=== PATIENT | female | born 1965 | race Caucasian/White ===

== ENCOUNTER 2018-11-19 22:08 | Emergency (ER) | payer SELFPAY ==
--- NOTE | 2018-11-19 23:44 | ERPHSYRPT ---
- History of Present Illness Time Seen by Provider: 11/19/18 23:41 Source: patient Exam Limitations: no limitations Patient Subjective Stated Complaint: pt is alert and oriented. pt is ambulatory with a steady gait. pt comes in with a small abrasion to her right lower leg that she believes is a "bat bite". area is closed. no drainage. no redness. no swelling. no tenderness. Triage Nursing Assessment: see above Physician History: 53-year-old white female previously healthy arrives with complaint that she is been having a bat bite her over the past 2 weeks. She states that the last time she was bitten was last November 15 she states she she's had a bad in her house she called her landlord he had never been able to see it but she states that she has has seen it and is convinced that the bat has bitten her several times over the past 2 weeks. Past medical history negative Past surgical history negative Timing/Duration: week(s) (2 weeks) Severity: moderate Modifying Factors: Improves With: nothing Associated Symptoms: No nausea, No vomiting, No abdominal pain, No shortness of breath, No heartburn, No diaphoresis, No cough, No chills, No chest pain, No fever, No headaches, No loss of appetite, No malaise, No rash, No syncope, No seizure, No weakness Allergies/Adverse Reactions: No Known Drug Allergies Allergy (Unverified 11/19/18 22:55) Home Medications: No Reportable Medications [No Reported Medications] 11/19/18 [History] Hx Tetanus, Diphtheria Vaccination/Date Given: No Immunizations Up to Date: Yes - Review of Systems Constitutional: No Symptoms Eyes: No Symptoms Ears, Nose, & Throat: No Symptoms Respiratory: No Cough, No Dyspnea Cardiac: No Chest Pain, No Edema, No Syncope Abdominal/Gastrointestinal: No Abdominal Pain, No Nausea, No Vomiting, No Diarrhea Genitourinary Symptoms: No Dysuria Musculoskeletal: No Back Pain, No Neck Pain Skin: Other (several small bites on lower legs), No Rash Neurological: No Dizziness, No Focal Weakness, No Sensory Changes Psychological: No Symptoms Endocrine: No Symptoms All Other Systems: Reviewed and Negative - Past Medical History Pertinent Past Medical History: No - Past Surgical History Past Surgical History: No - Social History Smoking Status: Current every day smoker How long have you smoked: 10 years Drug Use: none - Female History Hx Now: No - Nursing Vital Signs Nursing Vital Signs: Initial Vital Signs Temperature 98.2 F 11/19/18 22:50 Pulse Rate 103 H 11/19/18 22:50 Respiratory Rate 16 11/19/18 22:50 Blood Pressure 151/105 11/19/18 22:50 O2 Sat by Pulse Oximetry 97 11/19/18 22:50 Pain Scale Pain Intensity 0 - Physical Exam General Appearance: no apparent distress, alert Eye Exam: PERRL/EOMI, eyes nml inspection Ears, Nose, Throat Exam: normal ENT inspection, TMs normal, pharynx normal, moist mucous membranes Neck Exam: normal inspection, non-tender, supple, full range of motion Respiratory Exam: normal breath sounds, lungs clear, No respiratory distress Cardiovascular Exam: regular rate/rhythm, normal heart sounds, normal peripheral pulses, capillary refill <2 sec Gastrointestinal/Abdomen Exam: soft, normal bowel sounds, No tenderness, No mass Back Exam: normal inspection, normal range of motion, No CVA tenderness, No vertebral tenderness Extremity Exam: normal inspection, normal range of motion, pelvis stable Neurologic Exam: alert, oriented x 3, cooperative, single pointed operator II-XII nml as tested, normal mood/affect, nml cerebellar function, nml station & gait, sensation nml, No motor deficits Skin Exam: normal color, warm, dry, other (patient with several small abrasions on her lower extremities.), No rash Lymphatic Exam: No adenopathy SpO2 Interpretation: normal (96%) SpO2: 96 Ordered Tests: Active Orders 24 hr Category Date Time Status Wound Care STAT Care 11/20/18 00:15 Active Medication Summary Discontinued Medications Generic Name Dose Route Start Last Admin Trade Name Freq PRN Reason Stop Dose Admin Diphtheria/Tetanus/Acell Pertussis 0.5 ml 11/20/18 00:15 Adacel Vial IM 11/20/18 00:16 .ONCE ONE Rabies Immune Globulin 1,500 unit 11/20/18 00:11 Hyperrab S-D 1500 Iu/10 Ml Vial IM 11/20/18 00:12 .ONCE ONE Rabies Vaccine Human Diploid Cell 2.5 unit 11/20/18 00:14 Imovax Rabies Vaccine 2.5 Units IM 11/20/18 00:15 .ONCE ONE - Progress Progress: improved Progress Note: 11/20/18 00:24 53-year-old white female arrives with complaints that she thinks that it is biting her in her home. She states this is been going on for the past 2 weeks last time was on 15 November. Patient with a few small abrasions on her lower extremity no obvious bite wounds. However patient gives a history of having been in her house will go ahead and give patient rabies immune globulin. Give patient rabies vaccine. And give patient tetanus. Will have nurse cleaned the patient's wounds however these are old. - Departure Departure Disposition: Home Clinical Impression: Bat bite wound Condition: Fair Critical Care Time: No Referrals: DOCTOR,NO FAMILY [Primary Care Provider] - Additional Instructions: Return home. You will need to followup with your family doctor in 2 days to continue rabies vaccine. Consider followup with health Department. Return for acute distress or for severe symptoms. Rid your home of bats.
[2018-11-20 00:07] VITALS: BP 126/86; PULSE 90
[2018-11-20] MEDS ORDERED: HYPERRAB S-D 1500 IU/10 ML VIAL IM ONE (00:11)
[2018-11-20] MEDS ORDERED: IMOVAX RABIES VACCINE 2.5 UNITS IM ONE (00:14)
[2018-11-20] MEDS ORDERED: Adacel Vial IM ONE ×2 (00:15→00:34)
[2018-11-20 00:23] VITALS: O2SAT 96
== END 2018-11-20 01:24 | disposition home or self-care (01) ==
LOC: ED 22:08
DX: S80.811A Abrasion, right lower leg, initial encounter (principal); Z20.3 Contact with and (suspected) exposure to rabies
CPT/HCPCS: 90375; 90471; 90675; 90715; 96372; 99284